=== PATIENT | female | born 1955 | race Caucasian/White ===

== ENCOUNTER → 2017-01-07 | Outpatient (CLI) | payer OTHER ==
[~2017-01-07] MED LIST: COLACE100 MG PO; FLONASE 50 MCG/16 GM NOSE; IMITREX100 MG PO; KEFLEX500 MG PO; LOVENOX 4040 MG/0.4 SUB-Q; MIRALAX17 GM PO; NEURONTIN400 MG PO; NORCO 5-325 MG1 TAB PO; PERCOCET 5-3251 EACH PO; TYLENOL325 MG PO; VALIUM5 MG PO; [UNRECOGNIZED DRUG - REMARK] PO
== END | disposition disaster alternative care site (69) ==
LOC: LKCL 17:31
DX: Z12.4 Encounter for screening for malignant neoplasm of cervix (principal)
CPT/HCPCS: G0145

== ENCOUNTER → 2017-04-14 | Outpatient (CLI) | payer OTHER | END | disposition disaster alternative care site (69) | LOC: GRAD 17:13 | DX: S82.301D Unspecified fracture of lower end of right tibia, subsequent encounter for closed fracture with routine healing (principal); S82.831D Other fracture of upper and lower end of right fibula, subsequent encounter for closed fracture with routine healing; X58.XXXD Exposure to other specified factors, subsequent encounter ==